=== PATIENT | female | born 1945 | race Caucasian/White ===

== ENCOUNTER 2023-09-07 09:48 | Day surgery (SDC) | payer MEDICARE, OTHER ==
[~2023-09-07] VITALS: Ht 154.9 cm; Wt 86.2 kg
[~2023-09-07 09:48] MED LIST: Balanced Salt Epinephrine Irrigation Solution 500 mL IR SCH; DIAZEPAM5 M2 PO; ESCI10 PO; HYDCHL50 PO; IBUP800 PO; LIDO700A20 TOP; LOSA50 PO; Lidocaine HCl/Pf 1% 5 ML VIAL XX SCH; MELO7.5; Moxifloxacin HCL 0.5 MG/0.1 ML 0.4MLSYR RIGHTEYE SCH; NS 500 ML IV ONE; PHENYLEPHRINE\\TROPICAMIDE\\TETRACAINE OPHTHALMIC DILATING SOLN RIGHTEYE PRN; Povidone-Iodine 450 DROP/30 ML Solution ONE; Povidone-Iodine 450 DROP/30 ML Solution RIGHTEYE SCH; TIZANIDINE HCL213 PO; TRAM50 PO; Triamcinolone Inj Susp 40 MG / ML 1ML Vial INJ SCH; Triamcinolone Inj Susp 40 MG / ML 1ML Vial ONE; Voltaren100 GM
[2023-09-07] MEDS ORDERED: NS 500 ML IV ONE (10:13)
--- NOTE | 2023-09-07 10:14 | NUR ---
09/07/23 [facility] [address] [facility] NOTIF[facility] BP READINGS OF 211/109, 201/101, WITH HR OF 104. PATIENT DESCRIBES HAVING WHITE COAT SYNDROME.
[2023-09-07] MEDS ORDERED: Midazolam HCl 1MG / ML 2ML Vial ONE (10:31)
[2023-09-07] MEDS ORDERED: FentaNYL Citrate 50 MCG/ML 2 ML Injection ONE (10:31)
[2023-09-07] MEDS ORDERED: Tetracaine HCl 0.5% Opth Soln 15 ml RIGHTEYE ONE (10:55)
[2023-09-07 11:19] VITALS: BP 143/88
== END 2023-09-07 11:40 | disposition home or self-care (01) ==
LOC: ORSCSDS 09:48
PROVIDERS: Ophthalmology
PROC: 08RJ3JZ Replacement of Right Lens with Synthetic Substitute, Percutaneous Approach (ICD-10-PCS; principal; 2023-09-07 11:00)
DX: H25.11 Age-related nuclear cataract, right eye (principal); Z96.1 Presence of intraocular lens; I10 Essential (primary) hypertension; J45.909 Unspecified asthma, uncomplicated; Z79.899 Other long term (current) drug therapy
CPT/HCPCS: J2250; J3010; J3301; J7040; V2632

== ENCOUNTER → 2024-12-20 | Outpatient (CLI) | payer MEDICARE, OTHER ==
[~2024-12-20] MED LIST changes: -Balanced Salt Epinephrine Irrigation Solution 500 mL IR SCH; -Lidocaine HCl/Pf 1% 5 ML VIAL XX SCH; -Moxifloxacin HCL 0.5 MG/0.1 ML 0.4MLSYR RIGHTEYE SCH; -NS 500 ML IV ONE; -PHENYLEPHRINE\\TROPICAMIDE\\TETRACAINE OPHTHALMIC DILATING SOLN RIGHTEYE PRN; -Povidone-Iodine 450 DROP/30 ML Solution ONE; -Povidone-Iodine 450 DROP/30 ML Solution RIGHTEYE SCH; -Triamcinolone Inj Susp 40 MG / ML 1ML Vial INJ SCH; -Triamcinolone Inj Susp 40 MG / ML 1ML Vial ONE
[2024-12-20 19:22] LABS: BASOPHILS ABSOLUTE AUTO 0.03 K/mm3 (0.00-0.23); BASOPHILS PERCENT AUTO 1 % (0-2); EOSINOPHILS ABSOLUTE AUTO 0.17 K/mm3 (0.00-0.68); EOSINOPHILS PERCENT AUTO 3 % (0-6); Hematocrit 35.3 % (33.0-51.0); Hemoglobin 12.0 g/dL (11.5-16.0); IMMATURE GRAN ABSOLUTE AUTO 0.01 K/mm3 (0.00-0.10); IMMATURE GRAN PERCENT AUTO 0 % (0-1); LYMPHOCYTES ABSOLUTE AUTO 2.07 K/mm3 (0.84-5.20); LYMPHOCYTES PERCENT AUTO 33 % (21-46); MONOCYTES ABSOLUTE AUTO 0.55 K/mm3 (0.16-1.47); MONOCYTES PERCENT AUTO 9 % (4-13); Mean Corpuscular HGB Conc 34.0 g/dL (31.5-36.5); Mean Corpuscular Volume 92 fL (80-100); NEUTROPHILS ABSOLUTE AUTO 3.51 K/mm3 (1.96-9.15); NEUTROPHILS PERCENT AUTO 55 % (41-73); NRBC ABSOLUTE 0.00 K/mm3 (0.00-0.02); NRBC Auto 0.0 /100 WBC (0.0-0.2); Platelet Count 343 K/mm3 (150-400); RDW Coefficient Variation 13.4 % (11.7-14.2); RDW Standard Deviation 45.4 fL (35.1-46.3)
== END ==
LOC: LAB 19:11 → LAB SHORT 19:11
PROVIDERS: Hospitalist
DX: M54.16 Radiculopathy, lumbar region (principal)
CPT/HCPCS: 85025; 86140